=== PATIENT | male | born 1970 ===

== ENCOUNTER 2016-12-20 11:19 | Day surgery (SDC) | payer OTHER ==
[2016-12-19 08:40] VITALS: BMI 30.7
[2016-12-20 11:58] VITALS: RESP 18
[2016-12-20] MEDS ORDERED: Midazolam 2 MG/2 ML VIAL ONE (13:12)
[2016-12-20] MEDS ORDERED: Propofol 10 mg/ml Inj (20 ML) ONE (13:12)
[2016-12-20] MEDS ORDERED: Bupivacaine 0.5% Inj(30mL) ONE (13:21)
[2016-12-20] MEDS ORDERED: Lactated Ringer's 1,000 ML IV ONE (13:30)
[2016-12-20] MEDS ORDERED: Bupivacaine 0.5% 50 ML IJ ONE ×2 (13:50)
--- NOTE | 2016-12-20 14:20 | PCM.SURG1 ---
Surgeon's Initial Post Op Note - Surgeon's Notes Surgeon: Dr. Beauchamp Hourly Sign Language Interpreter: Mary Llamas, PGY1 Type of Anesthesia: General Endo, General LMA Anesthesia Administered By: Dr. Jansen Pre-Operative Diagnosis: Anal hemmeroids and anal ulceration Operative Findings: See dictation. Local block of 6mL of 0.5% marcaine plain Post-Operative Diagnosis: Same as pre-operative Operation Performed: Hemmeroidectomy and hemmeroid biopsy Specimen/Specimens Removed: Anal hemmeroid Estimated Blood Loss: EBL {In ML}: 20 Blood Products Given: N/A Drains Used: No Drains Post-Op Condition: Good Date of Surgery/Procedure: 12/20/16 Time of Surgery/Procedure: 13:30
[2016-12-20] MEDS ORDERED: Lactated Ringer's 1,000 ML IV SCH (14:30)
[2016-12-20] MEDS: HYDROmorphone 0.5 mg/0.5 ml ISec IVP PRN ×2 (14:30→15:05)
[2016-12-20 16:46] VITALS: BP 130/82; PULSE 72; TEMP 98; O2SAT 98
--- NOTE | 2017-01-01 18:02 | OP ---
PROCEDURE DATE: 12/20/2016 SURGEON: Dr. Beauchamp. ANESTHESIA: General, Dr. Jesu Jansen PREOPERATIVE DIAGNOSIS: Hemorrhoids, rule out anal malignancy. POSTOPERATIVE DIAGNOSIS: Hemorrhoids and a large anal fissure with ulceration. PROCEDURE: Exam under anesthesia, proctoscopy and hemorrhoidectomy. DESCRIPTION OF OPERATION: The patient was anesthetized and placed in a lithotomy position. The anal area was prepped and draped. The patient was noted to have mild prolapse circumferentially of nonth rombosed hemorrhoids. At the anterior portion of the anus there was a large hemorrhoid which felt mo re fibrotic. An examination of this area revealed a large ulceration to this hemorrhoid. A decision was made to perform a hemorrhoidectomy of the single ulcerative hemorrhoid with consideration for PP H later if the circumferential prolapse continued. A 2-0 chromic suture was placed within the anal c anal at the upper end of the hemorrhoidal column and ligated incision was made from the skin edge radha und the hemorrhoid and the hemorrhoid was dissected off the underlying sphincter. The hemorrhoid was then again ligated with the previously placed suture and removed. The mucosa was reapproximated wit h a locking sutures of the same previously placed suture out to the anal verge with the anal skin ruby ng left partially open. The operative site was examined for hemostasis and a Vaseline gauze packing was placed, followed by a dry sterile dressing. The patient tolerated the procedure well and transfe rred to recovery room in stable condition. Estimated blood loss for the procedure was 20 mL. Ned Beauchamp MD cc: [id number] TT: 01/01/2017 18:01:44 jn
== END 2016-12-20 18:20 | disposition home or self-care (01) ==
LOC: H.OPSURG 11:19
PROVIDERS: ATTEND Specialist
DX: K64.4 Residual hemorrhoidal skin tags (principal); I10 Essential (primary) hypertension; Z21 Asymptomatic human immunodeficiency virus [HIV] infection status

== ENCOUNTER 2017-10-11 11:04 | Emergency (ER) | payer MEDICAID, OTHER ==
[2017-10-11 11:05] VITALS: BMI 30.7
[2017-10-11 11:11] VITALS: BP 177/105; PULSE 87; RESP 17; TEMP 98.7; O2SAT 98
[2017-10-11] MEDS ORDERED: Oxycodone/Acetaminophen 5/325 mg Tab PO STA (11:37)
[2017-10-11] MEDS ORDERED: Oxycodone/Acetaminophen 5/325 mg Tab ONE (11:45)
--- NOTE | 2017-10-11 13:15 | ED PDOC ---
Lower Extremity Pain/Injury Time Seen by Provider: 10/11/17 11:21 Chief Complaint (Nursing): Lower Extremity Problem/Injury Chief Complaint (Provider): Lateral ankle pain, twisted last night History Per: Patient History/Exam Limitations: no limitations Onset/Duration Of Symptoms: Hrs Current Symptoms Are (Timing): Still Present Additional Complaint(s): Pt states he has been walking abnormally because of bunions. Pt states he twisted ankle last night and today when he woke up he was unable to stand on the right ankle and came to Er. Pt also noticed lateral ankle swelling. Past Medical History Reviewed: Historical Data, Nursing Documentation, Vital Signs Vital Signs: Last Vital Signs Temp 98.7 F 10/11/17 11:10 Pulse 87 10/11/17 11:10 Resp 17 10/11/17 11:10 BP 177/105 H 10/11/17 11:10 Pulse Ox 98 10/11/17 11:10 - Medical History PMH: HIV, HTN Denies: Chronic Kidney Disease - Surgical History Surgical History: No Surg Hx - Family History Family History: States: No Known Family Hx - Living Arrangements Living Arrangements: With Family - Social History Current smoker - smoking cessation education provided: No Alcohol: None Drugs: Denies - Home Medications Home Medications: Ambulatory Orders Medication Instructions Recorded Chlorthalidone [Hygroton] 25 mg PO DAILY 12/20/16 Elviteg/Cob/Emtri/Tenof Alafen 1 each PO DAILY 12/20/16 [Genvoya Tablet] Enalapril Maleate [Vasotec] 5 mg PO DAILY 12/20/16 Mineral Oil [Mineral Oil 30ml] 15 ml PO HS 12/20/16 oxyCODONE/Acetaminophen [Percocet 1 mg PO Q4 PRN 12/20/16 5/325 mg Tab] Naproxen [Naprosyn] 500 mg PO BID PRN #20 tablet 10/11/17 - Allergies Allergies/Adverse Reactions: Allergies Allergy/AdvReac Type Severity Reaction Status Date / Time No Known Allergies Allergy Verified 12/19/16 08:40 Review of Systems ROS Statement: Except As Marked, All Systems Reviewed And Found Negative Constitutional: Negative for: Fever, Chills Musculoskeletal: Positive for: Other Physical Exam - Reviewed Nursing Documentation Reviewed: Yes Vital Signs Reviewed: Yes - Physical Exam Appears: Positive for: Well, Non-toxic, No Acute Distress Head Exam: Positive for: ATRAUMATIC, NORMAL INSPECTION, NORMOCEPHALIC Skin: Positive for: Warm. Negative for: Normal Color (No ecchymosis, no abraasions, no erythmea ) Eye Exam: Positive for: Normal appearance ENT: Positive for: Normal ENT Inspection Neck: Positive for: Normal, Painless ROM Respiratory: Negative for: Accessory Muscle Use, Respiratory Distress Back: Positive for: Normal Inspection Extremity: Positive for: Normal ROM, Deformity, Swelling Neurologic/Psych: Positive for: Alert, Oriented - ECG O2 Sat by Pulse Oximetry: 98 Pulse Ox Interpretation: Normal Medical Decision Making Medical Decision Making: Pt reports continued pain after percocet. No acute fracture or dislocation seen on x-ray. Podiatry consult. Disposition - Clinical Impression Clinical Impression: Ankle injury - Disposition Referrals: Reji Phan DPM [Staff Provider] - Disposition: Routine/Home Disposition Time: 14:57 Condition: GOOD Prescriptions: Naproxen [Naprosyn] 500 mg PO BID PRN #20 tablet PRN Reason: Pain Instructions: Ankle Sprain (ED) Forms: [employer] (Serbian)
--- NOTE | 2017-10-11 15:00 | RAD ---
PROCEDURE: Right Foot Radiographs. HISTORY: Pain swelling following a traumatic event COMPARISON: [facility] 2017. 6 right ankle reported separately FINDINGS: BONES: No fracture identified. Plantar and Achilles Tendon insertion calcaneal spurs. JOINTS: Minor hallux valgus deformity. SOFT TISSUES: Normal. OTHER FINDINGS: None. IMPRESSION: No acute findings related to/accounting for the clinical presentation.
--- NOTE | 2017-10-11 15:02 | RAD ---
PROCEDURE: Right Ankle Radiographs. HISTORY: Posttraumatic pain and swelling. COMPARISON: None FINDINGS: BONES: No acute fractures. JOINTS: Lateral soft tissue swelling. Posttraumatic changes perhaps old fracture adjacent to the distal fibula. SOFT TISSUES: Normal. OTHER FINDINGS: Achilles tendon insertion spur IMPRESSION: Soft tissue swelling without acute articular or osseous abnormality.
--- NOTE | 2017-10-12 09:21 | CP.PCM.PN ---
Subjective - Date & Time of Evaluation Date of Evaluation: 10/11/17 Time of Evaluation: 13:45 - Subjective Subjective: Podiatry Consult- Dr. Rodriguez 47 y.o male with PMH of HIV+, HTN, seen in the ED for right ankle pain and swelling. Patient reports that Sunday night as he was walking down the stairs, he twisted his right ankle. The next day he noticed swelling and constant pain which prompt him to visit the ED. Patient reports that pain is 8/10 and describes the pain as a throbbing, sharp, shooting constant pain. He states the pain is getting worse. Patient reports he has ice and compress without relief. PMH: HIV+, HTN PSH: tonsillectomy, hemorrhoids surgery MEDS: see medication list SH: smokes pot daily, socially drinks EtOH, and reports 1/2 pack for 35 years ALL: NKDA FH: mother- kidney failure on dialysis, father- prostate cancer Objective - Vital Signs/Intake and Output Vital Signs (last 24 hours): Temp Pulse Resp BP Pulse Ox 98.7 F 87 17 177/105 H 98 10/11/17 11:10 10/11/17 11:10 10/11/17 11:10 10/11/17 11:10 10/11/17 14:57 - Constitutional Appears: Well, Non-toxic, No Acute Distress - Extremities Exam Extremities Exam: absent: Calf Tenderness Additional comments: Vasc: DP and PT 2/4 bilaterally, CFT < 3 seconds x10 digits, temperature gradient warm to cool, moderate swelling to the right ankle- nonpitting Ortho: severe pain with palpation to the ATFL and lateral gutter of right ankle. Mild pain to CFL, no pain with palpation to PTFL, no pain with palpation to distal fibular or tibia. Limited right ankle ROM with guarding. MM is 4/5 in all four compartments to the R secondary to guarding and 5/5 to the L, no gross deformity noted to the LE, Neuro: gross and protective sensation intact bilaterally Derm: no ecchymosis noted, no open lesions, no clinical signs of infection Assessment and Plan - Assessment and Plan (Free Text) Assessment: 47 y.o male with PMH of HIV+, HTN with clinical presentation most consistent with right ankle sprain. Plan: Patient examined and evaluated. Discussed plan in detail with attending Dr. Phan Charts and vitals reviewed. X-rays of foot and ankle reviewed- no acute bony pathology, no fractures noted Lynch compression applied to the right LE. Due to patient's painful LE, patient instructed to NWB to right ankle with crutches with Lynch compression intact. Patient to keep dressing c/d/i. Instructed on RICE protocol Patient to f/u with Dr. Phan in office. Thank you for the consult.
== END 2017-10-11 15:44 | disposition home or self-care (01) ==
LOC: H.ER 11:04
DX: S99.911A Unspecified injury of right ankle, initial encounter (principal); X50.1XXA Overexertion from prolonged static or awkward postures, initial encounter